=== PATIENT | male | born 1940 | race Caucasian/White ===

== ENCOUNTER 2017-01-23 11:36 | Inpatient (IN) | payer MEDICARE, OTHER ==
[~2017-01-23] VITALS: Ht 121.9 cm; Wt 40.8 kg
[~2017-01-23 11:36] MED LIST: BACITRACIN OINT30 GM EXT; COLACE 100MG C100 MG PO; FLOMAX0.4 MG PO; GLUCERNA237 ML PO; LEVEMIR FL100 UNIT/1 SQ; LEXAPRO5 MG PO; LIPITOR TAB 1010 MG PO; LORTAB 7.5-3251 EACH PO; LOTRIMIN CREAM15 GM EXT; MEGACE400 MG/10 PO; NORVASC 5 MG TAB5 MG PO; NOVOLOG FL100 UNIT/1 SQ; PROSCAR5 MG PO; SODIUM BICARBO650 MG PO
[2017-01-23 12:25] LABS: HEMOGLOBIN 13.4 gm/dl (14.0-17.5); RED BLOOD COUNT 4.58 M/UL (4.20-5.50)
[2017-01-23] MEDS ORDERED: NEURONTIN 100100 MG PO (16:50)
[2017-01-23] MEDS ORDERED: ARICEPT5 MG PO (16:50)
[2017-01-24 05:00] LABS: WHITE BLOOD COUNT 17.1 K/UL (4.5-11.0)
[2017-01-24 05:08] LABS: HEMOGLOBIN 10.9 gm/dl (14.0-17.5); RED BLOOD COUNT 3.76 M/UL (4.20-5.50)
== END 2017-01-24 22:10 | disposition expired | DRG 871 ==
LOC: ER1 11:36 → CCU 16:26
PROVIDERS: Emergency Medicine; Internal Medicine Nephrology; ADMIT Internal Medicine Infectious Disease
PROC: 5A1945Z Respiratory Ventilation, 24-96 Consecutive Hours (ICD-10-PCS; principal; 2017-01-23)
PROC: 05HM33Z Insertion of Infusion Device into Right Internal Jugular Vein, Percutaneous Approach (ICD-10-PCS; 2017-01-23)
DX: A41.9 Sepsis, unspecified organism (principal); R65.21 Severe sepsis with septic shock; J69.0 Pneumonitis due to inhalation of food and vomit; J96.01 Acute respiratory failure with hypoxia; J96.02 Acute respiratory failure with hypercapnia; G93.41 Metabolic encephalopathy; N39.0 Urinary tract infection, site not specified; N17.9 Acute kidney failure, unspecified; N18.4 Chronic kidney disease, stage 4 (severe); E87.2 Acidosis; E46 Unspecified protein-calorie malnutrition; Z68.43 Body mass index [BMI] 50.0-59.9, adult; I12.9 Hypertensive chronic kidney disease with stage 1 through stage 4 chronic kidney disease, or unspecified chronic kidney disease; F03.90 Unspecified dementia, unspecified severity, without behavioral disturbance, psychotic disturbance, mood disturbance, and anxiety; F32.9 Major depressive disorder, single episode, unspecified; E87.5 Hyperkalemia; E11.65 Type 2 diabetes mellitus with hyperglycemia; R41.82 Altered mental status, unspecified; I25.10 Atherosclerotic heart disease of native coronary artery without angina pectoris; J32.0 Chronic maxillary sinusitis; Z95.1 Presence of aortocoronary bypass graft; Z89.611 Acquired absence of right leg above knee; Z89.612 Acquired absence of left leg above knee; Z66 Do not resuscitate; Z95.5 Presence of coronary angioplasty implant and graft; N40.0 Benign prostatic hyperplasia without lower urinary tract symptoms; I73.9 Peripheral vascular disease, unspecified; K21.0 Gastro-esophageal reflux disease with esophagitis; Z86.73 Personal history of transient ischemic attack (TIA), and cerebral infarction without residual deficits; H91.3 Deaf nonspeaking, not elsewhere classified; I95.9 Hypotension, unspecified; Z98.890 Other specified postprocedural states; Z88.1 Allergy status to other antibiotic agents; Z80.52 Family history of malignant neoplasm of bladder; Z80.9 Family history of malignant neoplasm, unspecified; L89.159 Pressure ulcer of sacral region, unspecified stage; Z90.49 Acquired absence of other specified parts of digestive tract; D64.9 Anemia, unspecified; D72.829 Elevated white blood cell count, unspecified; Z51.89 Encounter for other specified aftercare; F17.210 Nicotine dependence, cigarettes, uncomplicated; R68.0 Hypothermia, not associated with low environmental temperature; E11.29 Type 2 diabetes mellitus with other diabetic kidney complication; N13.9 Obstructive and reflux uropathy, unspecified; B96.20 Unspecified Escherichia coli [E. coli] as the cause of diseases classified elsewhere; Z79.899 Other long term (current) drug therapy; Z79.4 Long term (current) use of insulin
CPT/HCPCS: 31500; 36415; 36600; 70450; 71010; 80048; 80053; 81001; 82009; 82436; 82550; 82553; 82803; 82962; 83605; 83735; 83880; 84100; 84132; 84133; 84300; 84484; 85025; 85610; 87040; 87070; 87077; 87081; 87086; 87186; 87205; 93005; 94002; 94003; 94644; 96365; 96375; 99285; C9113; J0610; J1644; J1815; J2020; J2543; J7030; J7040; J7050; J7070